=== PATIENT | male | born 2005 | race Hispanic/Latino ===

== ENCOUNTER 2025-06-26 12:43 | Emergency (ER) | payer BC ==
[2025-06-26] MEDS ORDERED: Lidocaine 1% w/Epinephrine 1:100K 20 ML VIAL ONE (13:16)
[2025-06-26] MEDS ORDERED: Boostrix 0.5 ML (Tdap) VIAL (>/=7 yrs of age) ONE (14:33)
== END 2025-06-26 14:46 | disposition home or self-care (01) ==
LOC: ERS 12:43
DX: S81.812A Laceration without foreign body, left lower leg, initial encounter (principal); F17.290 Nicotine dependence, other tobacco product, uncomplicated; Z23 Encounter for immunization; V24.41XA Electric (assisted) bicycle driver injured in collision with heavy transport vehicle or bus in traffic accident, initial encounter; Y92.410 Unspecified street and highway as the place of occurrence of the external cause
CPT/HCPCS: 12002; 71045; 90471; 90715; G0390